=== PATIENT | female | born 1970 | race Caucasian/White ===

== ENCOUNTER 2023-03-29 04:22 | Day surgery (SDC) | payer OTHER ==
[2023-03-24 13:49] VITALS: BMI 29.2
[2023-03-29] MEDS ORDERED: ACETAMINOPHEN 325 MG TABLET (FP) PO PRN (06:44)
[2023-03-29] MEDS ORDERED: oxyCODONE HCL 5 MG TABLET PO PRN ×2 (06:44→10:40)
[2023-03-29] MEDS ORDERED: ONDANSETRON 4 MG/2 ML VIAL IVPUSH PRN (06:44)
[2023-03-29] MEDS ORDERED: IBUPROFEN 400 MG TABLET (FP) PO PRN (06:44)
[2023-03-29] MEDS ORDERED: LIDOCAINE HCL/PF 2% SDV 5ML VIAL ONE (09:28)
[2023-03-29] MEDS ORDERED: PROPOFOL 20 ML ONE (09:29)
[2023-03-29] MEDS ORDERED: MIDAZOLAM HCL 2 MG/2 ML SINGLE DOSE VIAL ONE (09:29)
[2023-03-29] MEDS ORDERED: ceFAZolin SODIUM 1 GM VIAL ONE (09:47)
[2023-03-29] MEDS ORDERED: DEXAMETHASONE SOD PHOSPHATE 4 MG/1 ML VIAL ONE (09:47)
[2023-03-29] MEDS: ceFAZolin SODIUM 1 GM VIAL IVPB ONE (09:50)
[2023-03-29] MEDS ORDERED: KETOROLAC TROMETHAMINE 30 MG/1 ML VIAL ONE (10:00)
[2023-03-29] MEDS ORDERED: ONDANSETRON 4 MG/2 ML VIAL ONE (10:00)
[2023-03-29] MEDS ORDERED: PROMETHAZINE HCL 25 MG/1 ML VIAL IVPB PRN (10:40)
[2023-03-29] MEDS ORDERED: ACETAMINOPHEN 1000 MG/100 ML BAG IVPB ONE (10:40)
[2023-03-29] MEDS ORDERED: ACETAMINOPHEN INJECTION 100 ML IVPB ONE (10:42)
[2023-03-29] MEDS ORDERED: LACTATED RINGERS SOLUTION 1,000 ML IV SCH (10:45)
[2023-03-29] MEDS: ACETAMINOPHEN 1000 MG/100 ML BAG IVPB ONE (10:45)
[2023-03-29 12:42] VITALS: RESP 18
[2023-03-29 14:54] VITALS: BP 125/75; PULSE 77; TEMP 97.8
== END 2023-03-29 14:50 | disposition home or self-care (01) ==
LOC: JASU-SURG 04:22
PROVIDERS: ATTEND Obstetrics & Gynecology
PROC: 0UB98ZZ Excision of Uterus, Via Natural or Artificial Opening Endoscopic (ICD-10-PCS; principal; 2023-03-29 10:00)
DX: N95.0 Postmenopausal bleeding (principal); D25.0 Submucous leiomyoma of uterus
CPT/HCPCS: 81025; 86850; 86900; 86901; 88305-TC; 94760; J0131